=== PATIENT | male | born 2005 | race Caucasian/White ===

== ENCOUNTER 2023-03-03 22:39 | Emergency (ER) | payer MEDICAID, SELFPAY ==
[2023-03-03 22:40] VITALS: BP 157/75; PULSE 99; RESP 16; TEMP 36.6; O2SAT 99; BMI 22.4
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
[2023-03-03] MEDS: Ibuprofen 400 MG Tablet 800 MG PO (22:57)
--- NOTE | 2023-03-03 23:05 | RAD_ITS ---
INDICATION: Trauma EXAMINATION/TECHNIQUE: X-RAY - XR Ribs Unilateral W/ PA Chest Min 3 Views: Frontal chest with 4 view right rib series. COMPARISON: None. FINDINGS: SOFT TISSUES: No soft tissue swelling or gas. BONES: No evidence of rib fracture. No sclerotic or destructive changes observed. VISUALIZED LUNGS: Clear. No pneumothorax. RAD/Ribs Uni Min 3V w/PA Chest IMPRESSION: No evidence of rib fracture. CT could further evaluate as clinically indicated. No evidence of the pneumothorax or cardiopulmonary process. Electronically Signed: Devon Mcclelland MD at 23:26 EDT ,
[2023-03-03 23:37] VITALS: PULSE 75; RESP 16; O2SAT 98
== END 2023-03-03 23:38 | disposition home or self-care (01) ==
PROVIDERS: Emergency Provider Emergency Medicine; Visit Provider Emergency Medicine
DX: S20.219A Contusion of unspecified front wall of thorax, initial encounter (principal); R07.89 Other chest pain; F17.210 Nicotine dependence, cigarettes, uncomplicated; Y04.2XXA Assault by strike against or bumped into by another person, initial encounter
CPT/HCPCS: 71101; 99283